=== PATIENT | female | born 1975 | race Caucasian/White ===

== ENCOUNTER → 2017-09-27 | Outpatient (CLI) | payer OTHER ==
--- NOTE | 2017-09-27 13:07 | Diagnostic Imaging Report ---
PROCEDURE:ABDOMINAL ULTRASOUND COMPARISON:None. INDICATIONS:ABDOMEN/GB PAIN TECHNIQUE: Pope-scale and color sonographic images were obtained of the abdomen in transverse and sagittal planes. FINDINGS: Liver: Measures 14.6 cm in length in the right midclavicular line. Normal echogenicity. No masses. Main portal vein: Measures 0.9 cm, hepatopetal flow Gallbladder: Gallbladder wall thickening, distention, stones, or sludge. Common Bile Duct: Measures 2 mm. Sonographic Claudio's sign: Negative Right kidney: Measures 10.8 cm with normal echogenicity and no hydronephrosis. Spleen: No splenomegaly, measures 9.6 cm. Pancreas: The visualized portions are unremarkable. IVC: Patent Aorta: Within normal limits Ascites: None CONCLUSION: Unremarkable abdominal ultrasound. Dictated by: NORBERTO PATEL M.D. on 09/27/2017 at 13:12 Electronically approved by: NORBERTO PATEL M.D. on 09/27/2017 at 13:12
== END ==
LOC: US 11:23
PROVIDERS: ATTEND Family Medicine
DX: R10.9 Unspecified abdominal pain (principal); K82.9 Disease of gallbladder, unspecified
CPT/HCPCS: 76700